=== PATIENT | male | born 1980 | race Caucasian/White ===

== ENCOUNTER 2023-12-07 14:41 | Emergency (ER) | payer MEDICAID ==
[~2023-12-07] VITALS: Ht 163.8 cm; Wt 93.9 kg
[2023-12-07 14:52] VITALS: BP 123/99; PULSE 71; RESP 20; TEMP 96.9; O2SAT 97
== END 2023-12-07 15:20 | disposition left against medical advice (07) ==
LOC: MED 14:41
DX: R42 Dizziness and giddiness (principal); Z53.21 Procedure and treatment not carried out due to patient leaving prior to being seen by health care provider